=== PATIENT | female | born 1950 | race Caucasian/White ===

== ENCOUNTER 2019-03-06 13:08 | Day surgery (SDC) | payer MEDICARE ==
[2019-03-05 14:11] VITALS: BMI 25.7
[~2019-03-06 13:08] MED LIST: Fentanyl 100 MCG/2 ML VIAL ONE; Fluorouracil 100 MG, Enoxaparin Sodium 25 MG, EPINEPHrine 0.3 MG in Ophthalmic Irrigati... FS SCH; Midazolam HCl 2 mg/2 ml Vial ONE
[2019-03-06] MEDS ORDERED: Cyclopentolate 1% Opth Drop 2 ML BOT ONE (13:41)
[2019-03-06] MEDS ORDERED: Phenylephrine 2.5% Ophth Soln 5 ML BOT ONE (13:41)
[2019-03-06] MEDS ORDERED: PROPOFOL 200 MG/20 ML VIAL ONE (16:11)
[2019-03-06] MEDS ORDERED: Ondansetron PF 4 MG/2 ML Vial ONE ×2 (16:11→16:26)
[2019-03-06] MEDS ORDERED: Dexamethasone 20 MG/5 ML VIAL ONE (16:11)
[2019-03-06] MEDS ORDERED: Bupivacaine 0.75% 10 ML AMP ONE (16:11)
[2019-03-06] MEDS ORDERED: Lidocaine 1% PF 5 ML VIAL ONE (16:11)
[2019-03-06] MEDS ORDERED: Maxitrol 0.1% Opth Oint 3.5 GM TUBE ONE (16:11)
[2019-03-06] MEDS ORDERED: CEFAZOLIN 1 GM VIAL ONE (16:11)
[2019-03-06] MEDS ORDERED: Lidocaine 4% PF 5 ML AMP ONE (16:11)
[2019-03-06] MEDS ORDERED: Triamcinolone 40 MG/ML VIAL ONE (16:11)
--- NOTE | 2019-03-07 00:17 | OP ---
DATE OF PROCEDURE: 03/06/2019 PREOPERATIVE DIAGNOSIS: Rhegmatogenous retinal detachment, left eye. POSTOPERATIVE DIAGNOSIS: Rhegmatogenous retinal detachment, left eye. PROCEDURE PERFORMED: Pars plana vitrectomy, retinal detachment repair, left eye. ANESTHESIA: Local with monitored anesthesia care. PROCEDURE IN DETAIL: The patient was identified in the preoperative holding area. Appropriate informed consent for the planned surgical procedure on the left eye had been obtained. The patient was transported to the operative suite where appropriate cardiopulmonary monitoring was established. Local anesthesia was obtained using retrobulbar modified Van Lint lid block using 50:50 mixture of 4% lidocaine, 0.75% bupivacaine. The patient was prepped and draped in usual sterile manner for ophthalmic surgery on the left eye. Lid speculum was placed in the left eye. A 25-gauge trocar was placed through the conjunctiva and sclera supratemporally, inferotemporally, and supranasally. Infusion line was placed inferotemporally. Light pipe vitreous cutter was inserted into the eye. Core vitrectomy was performed. Attention was turned to the break at 3 o'clock position. Vitreous base was trimmed back 360 degrees using a wide-field viewing system. Posterior drained retinotomy was created inferior to the nerve. Complete air-fluid exchange was performed within 10 minutes being left for fluid to drain posteriorly. Laser was placed into the retinal periphery. 28% sulfur hexafluoride gas was infused into the eye. Trocars were removed. Superior sclerotomy suture was closed with 7-0 Vicryl suture. Retrobulbar Kenalog and subconjunctival Ancef were placed. Antibiotic ointment was placed and the eye was patched and shielded. The patient was taken to the postoperative recovery unit in good condition, having suffered no immediate perioperative complications. The patient was instructed to keep the patch and shield on, positioning left side down, followup appointment with Dr. Orozco. Job ID: [id number]
== END 2019-03-06 17:40 | disposition home or self-care (01) ==
LOC: SDC 13:08
PROVIDERS: ATTEND Ophthalmology Retina Specialist
PROC: 08T53ZZ Resection of Left Vitreous, Percutaneous Approach (ICD-10-PCS; principal; 2019-03-06)
DX: H33.012 Retinal detachment with single break, left eye (principal); E03.9 Hypothyroidism, unspecified; Z79.899 Other long term (current) drug therapy
CPT/HCPCS: 67025; J0171; J0690; J1100; J1650; J2001; J2250; J2405; J2704; J3010; J3301; J3490; J9190

== ENCOUNTER 2019-09-18 06:07 | Day surgery (SDC) | payer MEDICARE ==
[2019-09-17 12:25] VITALS: BMI 27.4
[2019-09-18] MEDS ORDERED: EPINEPHrine 0.3 MG in Ophthalmic Irrigation Solution 500 ML IV SCH (06:23)
[2019-09-18] MEDS ORDERED: Phenylephrine 2.5% Ophth Soln 5 ML BOT ONE (06:29)
[2019-09-18] MEDS ORDERED: Cyclopentolate 1% Opth Drop 2 ML BOT ONE (06:29)
[2019-09-18] MEDS ORDERED: Fentanyl 100 MCG/2 ML VIAL ONE (06:43)
[2019-09-18] MEDS ORDERED: Midazolam HCl 2 mg/2 ml Vial ONE (06:43)
--- NOTE | 2019-09-18 10:59 | OP ---
DATE OF PROCEDURE: 09/18/2019 PRINCIPAL PREOPERATIVE DIAGNOSES: 1. Epiretinal membrane, left eye. 2. Peripheral tractional retinal detachment, left eye. ESTIMATED BLOOD LOSS: None. SPECIMEN REMOVED: none. COMPLICATIONS: None. NAME OF PROCEDURES PERFORMED: 1. 25-gauge pars plana vitrectomy, left eye. 2. Epiretinal membrane/internal limiting membrane removal, left eye. 3. Endolaser retinal detachment barricade, left eye. SUMMARY OF OPERATION: The patient was identified in the preoperative holding area, where the correct eye being the left eye was marked for surgery. The patient was taken to the operating room, where MAC anesthesia was induced. Retrobulbar block was administered to the left eye. The block consisted of 1:1 ratio of 4% lidocaine and 0.75% Marcaine. A total of 5 mL was administered. The left eye was then prepped and draped in the usual sterile ophthalmic fashion for surgery. The wire lid speculum was placed. A standard 25-gauge pars plana vitrectomy platform was fashioned with trocars placed approximately 4 mm from the limbus. The infusion was noted to be within the vitreous cavity prior to being turned on to an infusion pressure of 30 mmHg. The light pipe and micro vitrector were introduced under visualization of BIOM viewing system. The infratemporal tractional retinal detachment was noted in the periphery. Additionally, a diffuse epiretinal membrane within the macula was noted. A limited peripheral shave vitrectomy was performed in this previously vitrectomized eye. Following vitrectomy, ICG dye was used to stain the internal limiting membrane. Using the Blake ILM forceps, an epiretinal membrane/internal limiting membrane peel was performed in a circumferential fashion about the fovea. The peel extended approximately 2 disk diameters in radius circumferentially. Following completion of peeling, the micro vitrector was reintroduced in the eye to remove any residual vitreous debris. The endolaser was subsequently used to provide barrier panretinal photocoagulation posterior to the tractional retinal detachment inferotemporally. The cannulas were sequentially removed and all sclerotomies were noted to be watertight. Subconjunctival Ancef and Kenalog were injected. The wire lid speculum was removed followed by application of TobraDex ophthalmic ointment and a light patch and shield. The patient tolerated the procedure well and was taken to the outpatient recovery area in good condition. Job ID: [id number]
== END 2019-09-18 09:45 | disposition home or self-care (01) ==
LOC: SDC 06:07
PROVIDERS: ATTEND Ophthalmology Retina Specialist
PROC: 08953ZZ Drainage of Left Vitreous, Percutaneous Approach (ICD-10-PCS; principal; 2019-09-18)
DX: H33.42 Traction detachment of retina, left eye (principal); H35.372 Puckering of macula, left eye
CPT/HCPCS: J0171; J2250; J3010

== ENCOUNTER 2019-10-02 08:22 | Day surgery (SDC) | payer MEDICARE ==
[2019-10-01 12:19] VITALS: BMI 27.4
[~2019-10-02 08:22] MED LIST changes: +EPINEPHrine 0.3 MG in Ophthalmic Irrigation Solution 500 ML IVP SCH; -Fentanyl 100 MCG/2 ML VIAL ONE; -Fluorouracil 100 MG, Enoxaparin Sodium 25 MG, EPINEPHrine 0.3 MG in Ophthalmic Irrigati... FS SCH; -Midazolam HCl 2 mg/2 ml Vial ONE
[2019-10-02] MEDS ORDERED: Phenylephrine 2.5% Ophth Soln 5 ML BOT ONE (09:13)
[2019-10-02] MEDS ORDERED: Cyclopentolate 1% Opth Drop 2 ML BOT ONE (09:13)
[2019-10-02] MEDS ORDERED: Fentanyl 100 MCG/2 ML VIAL ONE (10:29)
[2019-10-02] MEDS ORDERED: PROPOFOL 20 ML ONE (10:29)
[2019-10-02] MEDS ORDERED: Midazolam HCl 2 mg/2 ml Vial ONE (10:29)
[2019-10-02] MEDS ORDERED: Triamcinolone 40 MG/ML VIAL ONE (10:57)
[2019-10-02] MEDS ORDERED: Lidocaine 1% PF 5 ML VIAL ONE (10:57)
[2019-10-02] MEDS ORDERED: Maxitrol 0.1% Opth Oint 3.5 GM TUBE ONE (10:57)
[2019-10-02] MEDS ORDERED: Lidocaine 4% PF 5 ML AMP ONE (10:57)
[2019-10-02] MEDS ORDERED: Bupivacaine PF 0.75% SDV 10 ML ONE (10:57)
--- NOTE | 2019-10-02 12:47 | OP ---
DATE OF PROCEDURE: 10/02/2019 PREOPERATIVE DIAGNOSIS: Macula off tractional retinal detachment, left eye. POSTOPERATIVE DIAGNOSIS: Macula off tractional retinal detachment, left eye. PROCEDURES PERFORMED: 1. A 25-gauge pars plana vitrectomy, left eye. 2. Tractional retinal detachment repair, left eye. 3. Endolaser, left eye. 4. Silicone oil, left eye. ESTIMATED BLOOD LOSS: None. SPECIMENS REMOVED: None. COMPLICATIONS: None. ANESTHESIA: MAC with retrobulbar block. DESCRIPTION OF PROCEDURE: The patient was identified in the preoperative holding area, where the correct eye being the left eye was marked for surgery. The patient was taken to the operating room, where MAC anesthesia was induced. The retrobulbar block was administered to the left eye. The block consisted of 1:1 ratio of 4% lidocaine, 0.75% Marcaine. A total of 5 mL was administered. A standard 25-gauge pars plana vitrectomy platform was fashioned with trocars placed approximately 4 mm from the limbus. The infusion was noted to be within the vitreous cavity prior to being turned on to infusion pressure of 30 mmHg. The light pipe microvitrector was introduced in the eye under visualization of the BIOM viewing system. A total macula off tractional retinal detachment was noted. A numerous small defects were noted inferotemporally at approximately 5 o'clock. Additional layers of fibrosis were noted overlying this area and a peripheral shave vitrectomy was performed with the assistance of scleral depression. Following vitrectomy, the Blake MaxGrip forceps were used to gently peel the grade C proliferative vitreal retinopathy off the inferotemporal retina. Following completion of removal of the PVR, the retina was noted to be in a more relaxed state. The defects were marked with endo cautery. Subsequently, a superotemporal drainage retinotomy site was created with the endo cautery followed by opening with a flute needle. An air-fluid exchange was performed, which allowed for complete flattening of the retina. Endolaser was used to provide barricade around the retinotomy site as well as the aforementioned defects and a 360 degree cerclage with sparing of the 9 o'clock meridian. Following laser, the flute needle was reintroduced in the eye to remove the residual subretinal fluid. Subsequently, a complete silicone oil fill was achieved. The cannulas were sequentially removed and sutured with 8-0 Vicryl suture. Following suturing, all sclerotomies were noted to be oil tight. Subconjunctival Ancef and Kenalog were injected. The wire lid speculum was removed followed by application of TobraDex ophthalmic ointment and a light patch and shield. The patient tolerated the procedure well, was taken to outpatient recovery area in good condition. Job ID: [id number]
== END 2019-10-02 12:07 | disposition home or self-care (01) ==
LOC: SDC 08:22
PROVIDERS: ATTEND Ophthalmology Retina Specialist
PROC: 08T53ZZ Resection of Left Vitreous, Percutaneous Approach (ICD-10-PCS; principal; 2019-10-02)
DX: H33.42 Traction detachment of retina, left eye (principal)
CPT/HCPCS: C1814; J0171; J2001; J2250; J2704; J3010; J3301; J3490

== ENCOUNTER 2020-04-15 06:53 | Outpatient (CLI) | payer MEDICARE, OTHER ==
[2020-04-15 18:40] LABS: SARS-CoV-2 MS2 Positive; SARS-CoV-2 N Gene Negative; SARS-CoV-2 S Gene Negative; SARS-CoV-2 orf1ab Negative
== END 2020-04-15 06:54 | disposition home or self-care (01) ==
LOC: LABBT 06:53
PROVIDERS: ATTEND Ophthalmology Retina Specialist
DX: Z01.812 Encounter for preprocedural laboratory examination (principal); Z11.59 Encounter for screening for other viral diseases; Z98.890 Other specified postprocedural states
CPT/HCPCS: 87635; U0003

== ENCOUNTER 2020-04-20 06:17 | Day surgery (SDC) | payer MEDICARE ==
[2020-04-15 13:30] VITALS: BMI 26.6
[2020-04-20] MEDS ORDERED: Fentanyl 100 MCG/2 ML VIAL ONE (06:36)
[2020-04-20] MEDS ORDERED: Midazolam HCl 2 mg/2 ml Vial ONE (06:36)
[2020-04-20] MEDS ORDERED: EPINEPHrine 0.3 MG in Ophthalmic Irrigation Solution 500 ML IRR SCH (06:47)
[2020-04-20] MEDS ORDERED: Phenylephrine 2.5% Ophth Soln 5 ML BOT ONE (06:52)
[2020-04-20] MEDS ORDERED: Cyclopentolate 1% Opth Drop 2 ML BOT ONE (06:52)
--- NOTE | 2020-04-20 09:58 | OP ---
DATE OF PROCEDURE: 04/20/2020 PREOPERATIVE DIAGNOSES: 1. Epiretinal membrane, left eye. 2. Silicone oil, status post retinal detachment repair, left eye. POSTOPERATIVE DIAGNOSES: 1. Epiretinal membrane, left eye. 2. Silicone oil, status post retinal detachment repair, left eye. PROCEDURES PERFORMED: 1. A 25-gauge pars plana vitrectomy, left eye. 2. Epiretinal membrane/internal limiting membrane removal, left eye. 3. Silicone oil removal, left eye. ESTIMATED BLOOD LOSS: None. SPECIMENS REMOVED: None. COMPLICATIONS: None. ANESTHESIA: MAC with sub-Tenon's block. DESCRIPTION OF PROCEDURE: The patient was identified in the preoperative holding area, where the correct eye being the left eye was marked for surgery. The patient was taken to the operating room, where MAC anesthesia was induced. The left eye was prepped and draped in the usual sterile ophthalmic fashion for surgery. A wire-clip lid speculum was placed. An inferonasal conjunctival peritomy was fashioned with Wilmar scissors for administration of sub-Tenon's block. The block consisted of 1:1 ratio of 4% lidocaine and 0.75% Marcaine. A total of 5 mL was administered. The infusion turned on to infusion pressure of 40 mmHg. The silicone oil extrusion device was used to remove the majority of the silicone oil. Subsequently, the light pipe and flute needle were introduced into the eye and the retina were noted to be flat and attached. Three sequential air-fluid exchanges were performed, which allowed for complete removal of silicone oil. ICG dye was used to stain the internal limiting membrane. Using the Blake ILM forceps, a small epiretinal membrane was noted in the superior macula was gently removed. The microvitrector was reintroduced in the eye to remove any residual vitreous debris. The cannulas were sequentially removed and all sclerotomies were sutured with 8-0 Vicryl suture. Following suturing, all sclerotomies were noted to be watertight. The wire-clip lid speculum was removed followed by application of TobraDex ophthalmic ointment and a light patch and shield. The patient tolerated the procedure well and was taken to the outpatient recovery area in good condition. Job ID: [id number]
[2020-04-20] MEDS ORDERED: CEFAZOLIN 1 GM VIAL ONE (10:39)
[2020-04-20] MEDS ORDERED: Lidocaine 4% PF 5 ML AMP ONE (10:39)
[2020-04-20] MEDS ORDERED: PROPOFOL 200 MG/20 ML VIAL ONE (10:39)
[2020-04-20] MEDS ORDERED: Triamcinolone 40 MG/ML VIAL ONE (10:39)
[2020-04-20] MEDS ORDERED: Indocyanine Green 25 MG/10 ML VIAL ONE (10:39)
[2020-04-20] MEDS ORDERED: Tobramycin/Dexamethasone Ophth Oint 3.5 GM TUBE ONE (10:39)
[2020-04-20] MEDS ORDERED: Lidocaine 1% PF 5 ML VIAL ONE (10:39)
[2020-04-20] MEDS ORDERED: Bupivacaine PF 0.75% SDV 10 ML ONE (10:39)
== END 2020-04-20 10:05 | disposition home or self-care (01) ==
LOC: SDC 06:17
PROVIDERS: ATTEND Ophthalmology Retina Specialist
PROC: 08T53ZZ Resection of Left Vitreous, Percutaneous Approach (ICD-10-PCS; principal; 2020-04-20)
PROC: 08NF3ZZ Release Left Retina, Percutaneous Approach (ICD-10-PCS; 2020-04-20)
PROC: 08P Eye, Removal (ICD-10-PCS; 2020-04-20)
DX: H35.372 Puckering of macula, left eye (principal)
CPT/HCPCS: J0171; J0690; J2001; J2250; J2704; J3010; J3301; J3490